=== PATIENT | male | born 1985 | race Two or more races ===

== ENCOUNTER 2018-08-06 02:14 | Emergency (ER) | payer SELFPAY ==
[~2018-08-06] VITALS: Ht 170.2 cm; Wt 72.6 kg
[2018-08-06] VITALS (9 sets, daily range): BP systolic 122–132; BP diastolic 70–87
--- NOTE | 2018-08-06 02:14 | NUR ---
ED Nurse Note: Pt was SUELLEN from home, called 911 by his brother. c/o " Pt put a loop on his neck and was found by his brother today" accoding to [employer] report. Pt is 51: 50 on hold. Pt is A/O X 4, Vital signs stable at this time, waiting for orders. [employer] at bed side.
[2018-08-06] MEDS ORDERED: LORazepam Inj 2mg/ml 1ml IV ONE (02:30)
[2018-08-06] MEDS ORDERED: Haloperidol 5mg/ml Inj IM ONE (02:30)
--- NOTE | 2018-08-06 02:39 | Emergency Room Report ---
History of Present Illness General Chief Complaint: Suicidal Source: Patient Present Illness HPI Patient presents with reports of suicidal ideation Patient is brought in by paramedics and police department it was reported that the patient was found with a rope around his neck Patient had also reported taking amphetamines earlier he told his brother that he was going to kill himself It is unclear the specific reason for this presentation denies any chest pain or shortness of breath denies any vomiting or diarrhea Denies any previous psychiatric history or any medications Allergies: Coded Allergies: No Known Allergies (Unverified , 08/06/18) Patient History Past Medical History: see triage record Pertinent Family History: none Reviewed Nursing Documentation: PMH: Agreed; PSxH: Agreed Nursing Documentation-PMH Past Medical History: No Stated History Review of Systems All Other Systems: negative except mentioned in HPI Physical Exam Vital Signs Date Time Temp Pulse Resp B/P (MAP) Pulse Ox O2 Delivery O2 Flow Rate FiO2 08/06/18 02:09 98.1 90 18 134/72 (92) 90 Room Air Sp02 EP Interpretation: reviewed, normal General Appearance: well appearing, no apparent distress Head: normocephalic, atraumatic Eyes: bilateral eye PERRL, bilateral eye EOMI ENT: hearing grossly normal, normal pharynx, TMs + canals normal, uvula midline Neck: full range of motion, supple, no meningismus, no bony tend Respiratory: lungs clear, normal breath sounds, no rhonchi, no respiratory distress, no retraction, no accessory muscle use Cardiovascular #1: normal peripheral pulses, regular rate, rhythm, no edema, no gallop, no JVD, no murmur Gastrointestinal: normal bowel sounds, non tender, soft, no mass, no organomegaly, non-distended, no guarding, no hernia, no pulsatile mass, no rebound Genitourinary: no CVA tenderness Musculoskeletal: normal inspection Neurologic: oriented x3, responsive, motor strength/tone normal, sensory intact Psychiatric: other - At this time patient denies any homicidal or suicidal thoughts Skin: normal color, no rash, warm/dry, palpation normal Lymphatic: normal inspection, no adenopathy Medical Decision Making Diagnostic Impression: Primary Impression: Suicidal ideation Additional Impression: Medical clearance for psychiatric admission ER Course Given the patient's history and presentation extensive blood work is initiated Patient's blood work is appropriate patient had mentioned that he had done amphetamine and was found to be positive Patient is placed on a 5150 by police department at this time further medically stabilized and cleared for psychiatric evaluation Accepted for further psychiatric care at inpatient care Labs Test 08/06/18 02:35 White Blood Count 5.8 K/UL (4.8-10.8) Red Blood Count 5.19 M/UL (4.70-6.10) Hemoglobin 16.2 G/DL (14.2-18.0) Hematocrit 45.9 % (42.0-52.0) Mean Corpuscular Volume 88 FL (80-99) Mean Corpuscular Hemoglobin 31.1 PG (27.0-31.0) Mean Corpuscular Hemoglobin Concent 35.2 G/DL (32.0-36.0) Red Cell Distribution Width 11.5 % (11.6-14.8) Platelet Count 312 K/UL (150-450) Mean Platelet Volume 7.0 FL (6.5-10.1) Neutrophils (%) (Auto) 67.0 % (45.0-75.0) Lymphocytes (%) (Auto) 24.0 % (20.0-45.0) Monocytes (%) (Auto) 7.4 % (1.0-10.0) Eosinophils (%) (Auto) 0.6 % (0.0-3.0) Basophils (%) (Auto) 1.1 % (0.0-2.0) Sodium Level 142 MMOL/L (136-145) Potassium Level 4.5 MMOL/L (3.5-5.1) Chloride Level 107 MMOL/L (98-107) Carbon Dioxide Level 22 MMOL/L (21-32) Anion Gap 13 mmol/L (5-15) Blood Urea Nitrogen 13 mg/dL (7-18) Creatinine 0.6 MG/DL (0.55-1.30) Estimat Glomerular Filtration Rate > 60 mL/min (>60) Glucose Level 114 MG/DL (74-106) Calcium Level 8.6 MG/DL (8.5-10.1) Total Bilirubin 0.4 MG/DL (0.2-1.0) Aspartate Amino Transf (AST/SGOT) 53 U/L (15-37) Alanine Aminotransferase (ALT/SGPT) 31 U/L (12-78) Alkaline Phosphatase 109 U/L (46-116) Total Protein 7.8 G/DL (6.4-8.2) Albumin 3.7 G/DL (3.4-5.0) Globulin 4.1 g/dL Albumin/Globulin Ratio 0.9 (1.0-2.7) Salicylates Level < 0.2 ug/mL (2.8-20) Urine Opiates Screen Negative (NEGATIVE) Acetaminophen Level < 2 MCG/ML (10-30) Urine Barbiturates Screen Negative (NEGATIVE) Phencyclidine (PCP) Screen Negative (NEGATIVE) Urine Amphetamines Screen Positive (NEGATIVE) Urine Benzodiazepines Screen Negative (NEGATIVE) Urine Cocaine Screen Negative (NEGATIVE) Urine Marijuana (THC) Screen Negative (NEGATIVE) Serum Alcohol 80 mg/dL Last Vital Signs Date Time Temp Pulse Resp B/P (MAP) Pulse Ox O2 Delivery O2 Flow Rate FiO2 08/06/18 02:09 98.1 90 18 134/72 (92) 90 Room Air Status: improved Disposition: XFER TO PSYCH HOSP/UNIT Condition: Improved Scripts No Active Prescriptions or Reported Meds Referrals: NOT CHOSEN IPA/,REFERRING (PCP) aRdha Dodd DO Aug 06, 2018 02:39
--- NOTE | 2018-08-06 02:40 | NUR ---
ED Nurse Note: Blood and urine sample collected and sent to Lab.
--- NOTE | 2018-08-06 02:47 | NUR ---
ED Nurse Note: Meds given as ordered.
[2018-08-06 02:52] LABS: BASOPHILS % (AUTO) 1.1 % (0.0-2.0); EOSINOPHILS % (AUTO) 0.6 % (0.0-3.0); HEMATOCRIT 45.9 % (42.0-52.0); HEMOGLOBIN 16.2 G/DL (14.2-18.0); MEAN CORPUSCULAR VOLUME 88 FL (80-99); MONOCYTES % (AUTO) 7.4 % (1.0-10.0); PLATELET COUNT 312 K/UL (150-450); RED BLOOD COUNT 5.19 M/UL (4.70-6.10); RED CELL DISTRIBUTION WIDTH 11.5 % (11.6-14.8); WHITE BLOOD COUNT 5.8 K/UL (4.8-10.8)
[2018-08-06 02:55] LABS: ANION GAP 13 mmol/L (5-15); BLOOD UREA NITROGEN 13 mg/dL (7-18); CALCIUM 8.6 MG/DL (8.5-10.1); CARBON DIOXIDE 22 MMOL/L (21-32); CHLORIDE 107 MMOL/L (98-107); CREATININE 0.6 MG/DL (0.55-1.30); POTASSIUM 4.5 MMOL/L (3.5-5.1); SODIUM 142 MMOL/L (136-145)
[2018-08-06 02:59] LABS: ALANINE AMINOTRANSFERASE 31 U/L (12-78); ALBUMIN 3.7 G/DL (3.4-5.0); ALBUMIN/GLOBULIN RATIO 0.9 (1.0-2.7); ALKALINE PHOSPHATASE 109 U/L (46-116); ASPARTATE AMINO TRANSFERASE 53 U/L (15-37); BILIRUBIN,TOTAL 0.4 MG/DL (0.2-1.0)
--- NOTE | 2018-08-06 05:00 | NUR ---
ED Nurse Note: Pt's belonging in locker 1#.
--- NOTE | 2018-08-06 07:00 | NUR ---
ED Nurse Note: PT. IN ROOM QUIET, NO S/S OF ACUTE DISTRESS NOTED. SUICIDAL PRECAUTION INITIATED. NIDIA SUGGS RN AT THE BEDSIDE. PT. IS CALM
--- NOTE | 2018-08-06 07:04 | NUR ---
ED Nurse Note: Breakfast provided at bedside, pt is more calm and cooperative at this time.
--- NOTE | 2018-08-06 07:15 | NUR ---
HAND-OFF: Report given to Montserrat/RN for continue care. Pt is a/o x 4. VSS.
--- NOTE | 2018-08-06 07:20 | NUR ---
ED Nurse Note: recieved pt in room, sitting on gurney. pt aox 4. pt stated that he wants to go home, pt stated that he has no plans of hurting himself now, he showed yesterday on family member that he is going to hang himself but stated that he is only drunk yesterday. pt is calm at the moment. pt ate breakfast. will continue to monitor.
--- NOTE | 2018-08-06 08:17 | NUR ---
ED Nurse Note: CALLED HOUSE [employer]P TO REQUEST FOR A SITTER. YARITZA SUGGS IS THE SITTER FOR NOW
--- NOTE | 2018-08-06 09:18 | NUR ---
ED Nurse Note: pt is calm and comfortably sleeping on gurney. pt has no complaint at the moment. will continue to monitor
--- NOTE | 2018-08-06 10:36 | NUR ---
ED Nurse Note: pt is awake, no complaint at the moment. pt asked to transfer to ob room pt able to follow instruction. simario gama on bedside. will continue to monitor
--- NOTE | 2018-08-06 13:30 | NUR ---
ED Nurse Note: pt is on sitting on gurney, eating lunch. no complaint at the moment. sitter on bedside. will continue to monitor.
--- NOTE | 2018-08-06 14:45 | NUR ---
ED Nurse Note: PT. IS CALM AND COOPERATIVE. NO S/S OF ACUTE DISTRESS NOTED. SITTER STILL AT THE BEDSIDE
--- NOTE | 2018-08-06 14:45 | NUR ---
ED Nurse Note: UA SENT DOWN
[2018-08-06 14:48] LABS: APPEARANCE,URINE CLEAR; BILIRUBIN, URINE NEGATIVE (NEGATIVE); GLUCOSE, URINE (UA) NEGATIVE (NEGATIVE); KETONES,URINE NEGATIVE (NEGATIVE); LEUKOCYTE ESTERASE ,URINE NEGATIVE (NEGATIVE); NITRITE,URINE NEGATIVE (NEGATIVE); PH,URINE 5 (4.5-8.0); PROTEIN,URINE NEGATIVE (NEGATIVE); UROBILINOGEN,URINE 1 MG/DL (0.0-1.0)
[2018-08-06 14:51] LABS: COLOR,URINE YELLOW
--- NOTE | 2018-08-06 16:57 | NUR ---
ED Nurse Note: pt is jaqueline, sitting quitly, went to bathroom a while ago, pt has no complaint at the moment. pt is cooperative, sitter on bedside. will continue to monitor
--- NOTE | 2018-08-06 18:48 | NUR ---
ED Nurse Note: pt is sleeping on bed, respiration equal and unlabored. sitter on bedside. will continue to monitor
--- NOTE | 2018-08-06 20:32 | NUR ---
ED Nurse Note: Patient sleepinh calmly in bed, will continue to monitor
--- NOTE | 2018-08-06 22:27 | NUR ---
ED Nurse Note: Patient sleepign in bed, at no distress. sitter at bedside
--- NOTE | 2018-08-06 23:15 | NUR ---
ED Nurse Note: GAve report to Charge nurse Carly. Carly is aware [facility] ETA [id number]
--- NOTE | 2018-08-06 23:57 | NUR ---
ED Nurse Note: PAtient is being transported to [facility], patient at no distress at this time, VSS. IV taken out
== END 2018-08-06 23:59 ==
LOC: EDBD 02:14 → EMR 02:28
DX: R45.851 Suicidal ideations (principal)
CPT/HCPCS: 36415; 80053; 80307; 81001; 85025; 96372; 96374; 99285; G0480; J1630; 80329